=== PATIENT | male | born 1975 | race Two or more races ===

== ENCOUNTER 2024-09-04 13:03 | Inpatient (IN) | payer OTHER ==
[~2024-09-04] VITALS: Ht 180.3 cm; Wt 100.7 kg
[2024-09-04] MEDS ORDERED: COZAAR50 MG PO (13:26)
[2024-09-04] MEDS ORDERED: HCTZ (13:27)
[2024-09-04] MEDS ORDERED: CIPRO500 MG/5 M PO (13:34)
[2024-09-04] MEDS ORDERED: METRONIDAZOLE500 MG PO (13:35)
[2024-09-04] MEDS ORDERED: TRAMADOL HCL E100 M1 PO (13:35)
[2024-09-04] MEDS ORDERED: COLACE100 MG PO (13:35)
[2024-09-04] MEDS ORDERED: NAPRELAN500 M1 PO (13:36)
[2024-09-04] MEDS ORDERED: FAMOTIDINE/PF 20 MG/2 ML VIAL IV ONE (16:15)
[2024-09-04] MEDS ORDERED: 0.9 % SODIUM CHLORIDE 500 ML IV ONE (16:15)
[2024-09-04] MEDS ORDERED: PIPERACILLIN/TAZOBACTAM SODIUM 3.375 GM VIAL IV ONE (16:15)
[2024-09-04 16:25] LABS: HEMATOCRIT 43.6 % (39.0-48.0); HEMOGLOBIN 15.2 g/dL (13-16.00); MEAN CELL VOLUME 88.7 fL (80.0-100.00); MEAN CORPUSCULAR HEMOGLOBIN 30.9 pg (27.00-32.0); MEAN CORPUSCULAR HGB CONC 34.8 g/dl (32.0-36.0); PLATELET COUNT 273 K/uL (150-450); RED BLOOD COUNT 4.91 M/uL (4.00-6.00); RED CELL DISTRIBUTION WIDTH 12.7 % (11.5-14.5)
[2024-09-04 16:44] LABS: URINE APPEARANCE Clear; URINE BILIRRUBIN Negative (NEGATIVE); URINE BLOOD Negative; URINE COLOR Yellow; URINE GLUCOSE Negative (NEGATIVE); URINE KETONE 15 (NEGATIVE); URINE LEUKOCYTE Negative; URINE NITRATE Negative; URINE PROTEIN Negative (NEGATIVE)
[2024-09-04 16:48] LABS: URINE RBC 8.5 uL (0.0-20.8); URINE WBC 2.3 uL (0.0-23.2)
[2024-09-04 17:14] LABS: URINE BACTERIA 1.2 uL (0.0-1933); URINE EPITHELIAL CELLS 1.1 uL (0.0-38.8)
[2024-09-04] MEDS ORDERED: KETOROLAC TROMETHAMINE 30 MG VIAL IV ONE (17:45)
[2024-09-04 18:25] LABS: ALBUMIN 3.2 gm/dL (3.4-5.0); BILIRUBIN TOTAL 0.44 mg/dL (0.3-1.2); CALCIUM 8.7 mg/dL (8.5-10.1); CREATININE SERUM 0.73 mg/dL (0.70-1.30); GFR 114.68; GLOBULINA 4.1 G/DL (2.4-3.5); POTASSIUM 4.06 mEq/L (3.5-5.1); TOTAL PROTEIN 7.3 gm/dL (6.4-8.2)
[2024-09-04] MEDS ORDERED: MORPHINE SULFATE 2 MG/ML CARTRIDGE IV SCH (20:40)
[2024-09-04] MEDS ORDERED: 0.9 % SODIUM CHLORIDE 1,000 ML IV SCH (20:45)
[2024-09-04] MEDS ORDERED: NICOTINE 21MG/24HR PATCH.TD24 TD ONE (20:45)
[2024-09-04] MEDS ORDERED: MORPHINE SULFATE 2 MG/ML CARTRIDGE IV PRN (20:45)
[2024-09-04] MEDS ORDERED: ACETAMINOPHEN 500 MG GEL..CAP PO PRN (20:45)
[2024-09-04 21:49] VITALS: BP 137/67; O2SAT 99
[2024-09-04 22:14] LABS: INR 1.14; PARTIAL THROMBOPLASTIN TIME 29.4 SECONDS (22.0-34.0); PROTHROMBIN TIME 12.3 SECONDS (9.0-11.5)
[2024-09-05] MEDS ORDERED: PIPERACILLIN/TAZOBACTAM SODIUM 3.375 GM in DEXTROSE 5 % IN WATER 100 ML IV SCH
[2024-09-05 04:00] VITALS: BP 152/92; O2SAT 98
[2024-09-05 08:00] VITALS: BP 146/70; O2SAT 96
[2024-09-05] MEDS ORDERED: ENOXAPARIN SODIUM 40 MG/0.4 ML SYRINGE SUBCUTANEO SCH (09:00)
[2024-09-05] MEDS ORDERED: FAMOTIDINE/PF 20 MG in 0.9 % SODIUM CHLORIDE 8 ML IV PUSH SCH (09:00)
[2024-09-05] MEDS ORDERED: LOSARTAN POTASSIUM 50 MG TABLET PO SCH (09:00)
[2024-09-05] MEDS ORDERED: HYDROCHLOROTHIAZIDE 25 MG TABLET PO SCH (09:00)
[2024-09-05] MEDS ORDERED: TRAMADOL HCL 50 MG TABLET PO PRN (14:45)
[2024-09-06] VITALS: BP 107/69; O2SAT 96
[2024-09-06 07:33] LABS: HEMOGLOBIN 16.1 g/dL (13-16.00); MEAN CELL VOLUME 90.6 fL (80.0-100.00); MEAN CORPUSCULAR HGB CONC 34.2 g/dl (32.0-36.0); PLATELET COUNT 327 K/uL (150-450); RED BLOOD COUNT 5.19 M/uL (4.00-6.00); RED CELL DISTRIBUTION WIDTH 12.7 % (11.5-14.5)
[2024-09-06 08:05] LABS: ALBUMIN 3.4 gm/dL (3.4-5.0); BILIRUBIN TOTAL 0.55 mg/dL (0.3-1.2); CALCIUM 8.9 mg/dL (8.5-10.1); CREATININE SERUM 0.67 mg/dL (0.70-1.30); GFR 126.61; GLOBULINA 3.7 G/DL (2.4-3.5); MAGNESIUM 2.3 mg/dL (1.8-2.4); PHOSPHOROUS 3.2 mg/dL (2.5-4.9); POTASSIUM 4.48 mEq/L (3.5-5.1); TOTAL PROTEIN 7.1 gm/dL (6.4-8.2)
[2024-09-06 08:15] LABS: C-REACTIVE PROTEIN 10.5 MG/DL (0.00-0.29)
[2024-09-06] MEDS ORDERED: NICOTINE 21MG/24HR PATCH.TD24 TD SCH (09:00)
[2024-09-06 14:22] VITALS: BP 123/61; O2SAT 97
[2024-09-06 16:00] VITALS: BP 130/84; O2SAT 96
[2024-09-07 00:19] VITALS: BP 132/82; O2SAT 96
[2024-09-07 08:00] VITALS: BP 142/83; O2SAT 95
[2024-09-07] MEDS ORDERED: NICOTINE 21MG/24HR PATCH.TD24 TD SCH (09:00)
[2024-09-07 15:20] VITALS: BP 128/85; O2SAT 95
[2024-09-08 01:23] VITALS: BP 100/61
[2024-09-08 08:00] VITALS: BP 126/81; O2SAT 92
[2024-09-08 16:00] VITALS: BP 120/89; O2SAT 95
[2024-09-08] MEDS ORDERED: LORazepam 0.5 MG TABLET PO SCH (17:40)
[2024-09-08] MEDS ORDERED: FAMOtidine 20 MG TABLET PO SCH (21:00)
[2024-09-09 00:29] VITALS: BP 135/74; O2SAT 95
[2024-09-09] MEDS ORDERED: LACTOBACILLUS ACIDOPHILUS 1 CAP CAP PO SCH (09:00)
[2024-09-09 14:57] VITALS: BP 133/83; O2SAT 96
[2024-09-09 16:00] VITALS: BP 127/75; O2SAT 95
[2024-09-10 01:07] VITALS: BP 124/87; O2SAT 95
[2024-09-10] MEDS ORDERED: TRAMADOL HCL 50 MG TABLET PO PRN (12:00)
[2024-09-10 12:47] VITALS: BP 115/61; O2SAT 98
[2024-09-10 16:11] VITALS: BP 123/74; O2SAT 93
[2024-09-11 00:28] VITALS: BP 117/72; O2SAT 99
[2024-09-11 09:55] VITALS: BP 131/87; O2SAT 96
== END 2024-09-11 16:53 | disposition home or self-care (01) | DRG 392 ==
LOC: ER 13:06 → SURG 21:19 → MEDJ 21:19 → SURG 09-05 01:02
PROVIDERS: General Practice; Internal Medicine Infectious Disease; ADMIT Internal Medicine; ATTEND Internal Medicine
PROC: BW21ZZZ Computerized Tomography (CT Scan) of Abdomen and Pelvis (ICD-10-PCS; principal; 2024-09-04)
DX: K57.32 Diverticulitis of large intestine without perforation or abscess without bleeding (principal); I10 Essential (primary) hypertension